=== PATIENT | male | born 1950 | race Caucasian/White ===

== ENCOUNTER 2017-08-12 09:33 | Day surgery (SDC) | payer MEDICARE, OTHER ==
[~2017-08-12] VITALS: Ht 177.8 cm; Wt 93.0 kg
--- NOTE | ~2017-08-12 | EGD ---
EGD REPORT [facility] [address] [id number] NAME: ARSLAN BRADSHAW : [birth year] [place]US : [place] [facility] [place] [id number] AGE: 66 ADM/REG DATE : 08/12/17 MR#: [id number] REPORT SERV DATE: 08/12/17 DICTATED BY: DATE: REPORT STATUS : Draft TRANSCRIBED BY: [employer] DATE: 08/12/17 [facility] Patient Name: Arslan Bradshaw Date of : 1950 Attending MD: KAE YI MD Procedure Date No Time: 08/12/2017 Procedure: Colonoscopy Indications: High risk colon cancer surveillance: Personal history of non-advanced adenoma Referring MD: ALEX MCMULLEN MD Medicines: Monitored Anesthesia Care Complications: No immediate complications. Procedure: Pre-Anesthesia Assessment: - ASA Grade Assessment: III - A patient with severe systemic disease. After I obtained informed consent, the scope was passed under direct vision. Throughout the procedure, the patient's blood pressure, pulse, and oxygen saturations were monitored continuously. The PCF [id number] was introduced through the anus and advanced to the cecum, identified by appendiceal orifice and ileocecal valve. The colonoscopy was performed without difficulty. The patient tolerated the procedure well. The quality of the bowel preparation was excellent. Findings: The perianal and digital rectal examinations were normal. A sessile polyp was found in the ascending colon. The polyp was small in size. The polyp was removed with a cold snare. Resection and retrieval were complete. No other significant abnormalities were identified in a careful examination of the remainder of the colon. There is no endoscopic evidence of diverticula, inflammation, mass, ulcerations or angioectasia in the entire colon. Internal hemorrhoids were found during retroflexion and were Grade I (internal hemorrhoids that do not prolapse). No additional abnormalities were found on retroflexion. Impression: - One small polyp in the ascending colon. Resected and retrieved. - Internal hemorrhoids. Recommendation: - Patient has a contact number available for emergencies. The signs and symptoms of potential delayed complications were discussed with the patient. Return to EGD REPORT [address] [id number] NAME: ARSLAN BRADSHAW : [birth year] [place]US : [place] [facility] [place]#: [id number] AGE: 66 ADM/REG DATE : 08/12/17 MR#: [id number] REPORT SERV DATE: 08/12/17 DICTATED BY: DATE: REPORT STATUS : Draft TRANSCRIBED BY: [employer] DATE: 08/12/17 normal activities tomorrow. Written discharge instructions were provided to the patient. - Regular diet. - Discharge patient to home. - Continue present medications. - Await pathology results. - Repeat colonoscopy in 5 years for surveillance. - Resume Pradaxa (dabigatran) at prior dose today. Refer to managing physician for further adjustment of therapy. - After you start Pradaxa, you may stop the Lovenox. Procedure Code(s): --- Professional --- 80173, Colonoscopy, flexible, proximal to splenic flexure; with removal of tumor(s), polyp(s), or other lesion(s) by snare technique Diagnosis Code(s): --- Professional --- D12.2, Benign neoplasm of ascending colon K64.0, First degree hemorrhoids Z86.010, Personal history of colonic polyps CPT copyright 2013 [employer]. All rights reserved. The codes documented in this report are preliminary and upon [employer] nurse review may be revised to meet current compliance requirements. KAE YI MD 08/12/2017 11:26 AM This report has been signed electronically. Number of Addenda: 0 Note Initiated On: 08/12/2017 10:59 AM Scope Withdrawal Time 0 hours 11 minutes 8 seconds [id number] [id number]
[~2017-08-12 09:33] MED LIST: ASAB PO; ASCRIPTIN PO; BETAPACE160 MG PO; BETAPACE80 PO; COLCH6 PO; CORDARONE PO; CRANBERRY1 TAB OR; CRANBERRY300 MG PO; FISH-EPA1000 MG PO; FORTAMET500 MG PO; Fish Oil PO; GLUCPH PO; JANTOVEN1 MG PO; JANTOVEN3 MG PO; JANTOVEN6 MG PO; LOP25 PO; LOPID6 PO; LOVENOX1C SC; LOVENOX60 SC; MULTIPLE VIT PO; NORV5 PO; PRADAXA150 MG PO; PRAVACHOL40 MG PO; PRILO PO; PRILOSEC40 MG PO; REG5 PO; RYTHMOL300 MG PO; VICODINTAB PO; VITAMINS & HERBS; ZOCOR40 PO
== END 2017-08-12 23:59 | disposition home health service (06) ==
LOC: DMU 09:33
PROVIDERS: Internal Medicine Gastroenterology
PROC: 0DBK8ZZ Excision of Ascending Colon, Via Natural or Artificial Opening Endoscopic (ICD-10-PCS; principal; 2017-08-12 11:30)
DX: Z12.11 Encounter for screening for malignant neoplasm of colon (principal); D12.2 Benign neoplasm of ascending colon; I49.1 Atrial premature depolarization; K64.0 First degree hemorrhoids; I48.91 Unspecified atrial fibrillation; K21.9 Gastro-esophageal reflux disease without esophagitis; E11.9 Type 2 diabetes mellitus without complications; I10 Essential (primary) hypertension; Z86.73 Personal history of transient ischemic attack (TIA), and cerebral infarction without residual deficits; Z86.010 Personal history of colon polyps; Z88.2 Allergy status to sulfonamides; Z79.82 Long term (current) use of aspirin; Z79.899 Other long term (current) drug therapy; Z98.890 Other specified postprocedural states
CPT/HCPCS: 82962; 88305